=== PATIENT | female | born 1995 | race Caucasian/White ===

== ENCOUNTER 2017-08-02 21:15 | Emergency (ER) | payer MEDICAID, OTHER ==
--- NOTE | 2017-08-02 22:47 | EDM.PDOC ---
ED HPI GENERAL MEDICAL PROBLEM - General Chief Complaint: Eye Problems Stated Complaint: EYE PROBLEMS Time Seen by Provider: 08/02/17 21:58 Source of Information: Reports: Patient History Limitations: Reports: No Limitations - History of Present Illness INITIAL COMMENTS - FREE TEXT/NARRATIVE: The patient states that she has had a dark spot near the center of her right eye visual field for the past 2 days. She reports a dull headache felt behind her right eye. She reports feeling dizzy, the sensation of tunnel vision, and lightheaded. No injury to the eye. No prior similar symptoms. The patient wears eyeglasses, but not contact lenses. The patient has been incarcerated at the [facility] for about one year. Right Eye Pain Score (Numeric/FACES): 4 - Related Data Allergies Allergy/AdvReac Type Severity Reaction Status Date / Time No Known Allergies Allergy Verified 08/02/17 21:20 Past Medical History HEENT History: Reports: Impaired Vision Other HEENT History: Wears glasses Psychiatric History: Reports: Anxiety, Depression - Past Surgical History Female Surgical History: Reports: D&C, Other (See Below) Other Female Surgeries/Procedures: Ovarian cyst removed. Social & Family History - Tobacco Use Smoking Status *Q: Former Smoker Used Tobacco, but Quit: Yes Month/Year Tobacco Last Used: 2016 - Recreational Drug Use Recreational Drug Use: Yes Drug Use in Last 12 Months: No Recreational Drug Use Frequency: Not Used In Over 6 Months - Living Situation & Occupation Living situation: Reports: Other (Incarcerated at [facility]) ED ROS GENERAL - Review of Systems Review Of Systems: ROS reveals no pertinent complaints other than HPI. ED EXAM GENERAL W FULL EYE - Physical Exam Exam: See Below Exam Limited By: No Limitations General Appearance: Alert, WD/WN, No Apparent Distress Eye Exam: Bilateral Eye: EOMI, PERRL IOP (R) in mmH IOP (L) in mmH IOP Measure with (Equipment): Tonopen Eyelids: Bilateral: Normal Appearance Conjunctiva & Sclera: Bilateral: Normal Appearance Cornea Exam: Bilateral: Normal Appearance Extraocular Movements: Bilateral: Intact Pupils: Normal Accommodation Pupillary Size: Bilateral: 5 mm Pupillary Reaction: Bilateral: Brisk Anterior Chamber: Bilateral: Normal Appearance Posterior Chamber: Bilateral: Other (Unable to visualize) Course - Vital Signs Last Recorded V/S: Last Vital Signs Temp 37.4 C 08/02/17 21:20 Pulse 79 08/02/17 21:20 Resp 18 08/02/17 21:20 BP 125/77 08/02/17 21:20 Pulse Ox 99 08/02/17 21:20 - Re-Assessments/Exams Free Text/Narrative Re-Assessment/Exam: 08/02/17 22:40 On direct visual field challenge, she has no peripheral deficits, however, she reports central vision loss to her right eye = scotoma. The etiology is unclear. I see no evidence of hyphema, keratitis, vitreous hemorrhage, uveitis, or conjunctivitis. There are no foreign bodies, and no evidence of corneal abrasion or ulcer. Unfortunately, I am not able to adequately visualize the patient's retina. 08/02/17 23:[address] Isaac, Health Nurse at [facility], at 23:09 MDT. He recommends that the patient see him in his office tomorrow, 2017 for pupillary dilatation and retinal examination. 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 No abnormalities were found on examination in the ER. Your case was discussed with Dr. Isaac, an Health Nurse in [place]. You are to call his office first thing tomorrow morning, 08/03/2017, to make an appointment to be seen tomorrow. If any other problems, please do not hesitate to return to the ER.
== END 2017-08-02 23:24 | disposition home or self-care (01) ==
LOC: JD.ED 21:15
DX: H53.451 Other localized visual field defect, right eye (principal); Z87.891 Personal history of nicotine dependence
CPT/HCPCS: 99283